=== PATIENT | male | born 1940 | race Caucasian/White ===

== ENCOUNTER 2020-07-23 07:23 | Outpatient (REF) | payer MEDICARE, SELFPAY ==
[2020-07-23 09:10] LABS: Alanine Aminotransferase 27 U/L (0-40); Albumin Level 4.1 g/dL (3.5-5.0); Alkaline Phosphatase 82 U/L (39-117); Aspartate Amino Transferase 20 U/L (5-37); Bilirubin Direct 0.3 mg/dL (0.0-0.5); Bilirubin Total 0.8 mg/dL (0.0-1.0); Cholesterol 176 mg/dL; HDL Cholesterol 43 mg/dL; LDL Cholesterol Calculated 115 mg/dl; Total Protein 6.6 g/dL (6.5-8.0); Triglycerides 93 mg/dL
[2020-07-23 10:34] LABS: Reflex LDLD? No
== END 2020-07-23 07:24 | disposition home or self-care (01) ==
LOC: HO.LAB 07:23
PROVIDERS: PCP Internal Medicine; Visit Provider Internal Medicine
DX: E78.00 Pure hypercholesterolemia, unspecified (principal)
CPT/HCPCS: 80061; 80076

== ENCOUNTER 2021-01-21 10:09 | Outpatient (REF) | payer MEDICARE, SELFPAY ==
[2021-01-21 10:12] LABS: MANUAL DIFF FLAG NO
[2021-01-21 10:37] LABS: Basophils Percent Auto 0.4 % (0-2); Eosinophils Absolute Auto 0.2 X10*3/uL (0.0-0.4); Hematocrit 47.1 % (42-52); Hemoglobin 15.3 g/dl (14.0-18.0); Imm Gran Abs Auto 0.01 X10*3/uL (0.00-0.03); Imm Gran Pct Auto 0.1 % (0.0-0.4); Lymphocytes Absolute Auto 1.7 X10*3/uL (1.2-4.9); Lymphocytes Percent Auto 24.6 % (20-40); Mean Corpuscular HGB Conc 32.5 g/dl (31.0-36.0); Mean Corpuscular Hemoglobin 28.9 pg (27.0-33.0); Mean Corpuscular Volume 88.9 fL (80-98); Mean Platelet Volume 10.6 fL (9.4-12.4); Monocytes Absolute Auto 0.5 X10*3/uL (0.1-1.2); Monocytes Percent Auto 6.7 % (2-11); Neutrophils Absolute Auto 4.4 X10*3/uL (2.0-8.3); Neutrophils Percent Auto 65.2 % (45-73); Platelet Count 214 X10*3/uL (160-400); Red Cell Distribution Width 13.2 % (11.0-16.0); White Blood Count 6.8 X10*3/uL (4.8-10.8)
[2021-01-21 10:40] LABS: Glucose Urine UA NEG (NEG); Leukocyte Esterase Urine NEG (NEG); Nitrite Urine NEG (NEG); Urine Blood NEG (NEG); Urine Ketones NEG (NEG); Urine Protein NEG (NEG-TRACE)
[2021-01-21 10:42] LABS: Appearance Urine CLEAR; Color Urine YELLOW
[2021-01-21 11:19] LABS: Alanine Aminotransferase 27 U/L (0-40); Albumin Level 4.1 g/dL (3.5-5.0); Alkaline Phosphatase 72 U/L (39-117); Anion Gap 9 (12-20); Aspartate Amino Transferase 22 U/L (5-37); Bilirubin Total 0.8 mg/dL (0.0-1.0); Blood Urea Nitrogen 15 mg/dL (9-16); Calcium 8.8 mg/dL (8.4-10.2); Carbon Dioxide 29 mmol/L (22-29); Chloride 105 mmol/L (96-108); Cholesterol 163 mg/dL; Estimated Glomerular Filt Rate > 60; Glucose Fasting 96 mg/dL (60-99); HDL Cholesterol 41 mg/dL; LDL Cholesterol Calculated 97 mg/dl; Potassium 4.3 mmol/L (3.3-5.1); Sodium 139 mmol/L (135-145); Total Protein 6.4 g/dL (6.5-8.0); Triglycerides 126 mg/dL
[2021-01-21 11:38] LABS: PSA,Total (Free>4and<10) 0.51 ng/mL (0.00-4.00)
[2021-01-21 11:49] LABS: Reflex LDLD? No
== END 2021-01-21 10:10 | disposition home or self-care (01) ==
LOC: HO.LNP 10:09
PROVIDERS: Visit Provider Internal Medicine
DX: Z12.5 Encounter for screening for malignant neoplasm of prostate (principal); I10 Essential (primary) hypertension
CPT/HCPCS: 80053; 80061; 81003; 84153; 85025

== ENCOUNTER 2021-07-21 10:32 | Outpatient (REF) | payer MEDICARE, SELFPAY ==
[2021-07-21 11:30] LABS: Alanine Aminotransferase 24 U/L (0-40); Alkaline Phosphatase 80 U/L (39-117); Aspartate Amino Transferase 20 U/L (5-37); Bilirubin Direct 0.3 mg/dL (0.0-0.5); Bilirubin Total 0.7 mg/dL (0.0-1.0); Cholesterol 161 mg/dL; HDL Cholesterol 35 mg/dL; LDL Cholesterol Calculated 104 mg/dl; Total Protein 6.5 g/dL (6.5-8.0); Triglycerides 110 mg/dL
[2021-07-21 12:51] LABS: Reflex LDLD? No
== END 2021-07-21 10:33 | disposition home or self-care (01) ==
LOC: HO.LNP 10:32
PROVIDERS: PCP Internal Medicine; Visit Provider Internal Medicine
DX: E78.00 Pure hypercholesterolemia, unspecified (principal)
CPT/HCPCS: 80061; 80076

== ENCOUNTER 2021-07-31 08:38 | Outpatient (REF) | payer MEDICARE, SELFPAY | END 2021-07-31 08:39 | disposition home or self-care (01) | LOC: HO.WFDLDS 08:38 | PROVIDERS: PCP Internal Medicine; Visit Provider Internal Medicine | DX: Z20.822 Contact with and (suspected) exposure to COVID-19 (principal) | CPT/HCPCS: C9803; U0003; U0005 ==

== ENCOUNTER 2022-01-20 10:33 | Outpatient (REF) | payer MEDICARE, SELFPAY ==
[2022-01-20 10:37] LABS: MANUAL DIFF FLAG NO
[2022-01-20 11:30] LABS: Basophils Absolute Auto 0.1 X10*3/uL (0.0-0.2); Basophils Percent Auto 0.9 % (0-2); Eosinophils Absolute Auto 0.2 X10*3/uL (0.0-0.4); Eosinophils Percent Auto 3.4 % (0-4); Hemoglobin 15.5 g/dl (14.0-18.0); Imm Gran Abs Auto 0.01 X10*3/uL (0.00-0.03); Imm Gran Pct Auto 0.2 % (0.0-0.4); Lymphocytes Absolute Auto 1.5 X10*3/uL (1.2-4.9); Lymphocytes Percent Auto 27.1 % (20-40); Mean Corpuscular Hemoglobin 29.2 pg (27.0-33.0); Mean Corpuscular Volume 88.7 fL (80.0-98.0); Mean Platelet Volume 10.9 fL (9.4-12.4); Monocytes Absolute Auto 0.4 X10*3/uL (0.1-1.2); Monocytes Percent Auto 7.8 % (2-11); Neutrophils Absolute Auto 3.4 x10*3/uL (2.0-8.3); Neutrophils Percent Auto 60.6 % (45-73); Platelet Count 233 X10*3/uL (160-400); White Blood Count 5.6 X10*3/uL (4.8-10.8)
[2022-01-20 11:44] LABS: Appearance Urine CLEAR; Color Urine YELLOW; Glucose Urine UA NEG (NEG); Leukocyte Esterase Urine NEG (NEG); Nitrite Urine NEG (NEG); Specific Gravity - Urine <= 1.005 (1.005-1.025); Urine Blood NEG (NEG); Urine Ketones NEG (NEG); Urine Protein NEG (NEG-TRACE)
[2022-01-20 11:50] LABS: Alanine Aminotransferase 20 U/L (0-40); Alkaline Phosphatase 72 U/L (39-117); Anion Gap 9 (12-20); Aspartate Amino Transferase 18 U/L (5-37); Blood Urea Nitrogen 14 mg/dL (9-16); Calcium 8.5 mg/dL (8.4-10.2); Carbon Dioxide 29 mmol/L (22-29); Chloride 103 mmol/L (96-108); Cholesterol 156 mg/dL; Estimated Glomerular Filt Rate > 60; Glucose Fasting 102 mg/dL (60-99); HDL Cholesterol 36 mg/dL; LDL Cholesterol Calculated 101 mg/dl; Potassium 4.3 mmol/L (3.3-5.1); Sodium 137 mmol/L (135-145); Total Protein 6.4 g/dL (6.5-8.0); Triglycerides 95 mg/dL
[2022-01-20 12:10] LABS: PSA,Total (Free>4and<10) 0.45 ng/mL (0.00-4.00)
[2022-01-20 12:20] LABS: RBC Urine 0 /HPF (0); WBC Urine 0 /HPF (0-4)
== END 2022-01-20 10:34 | disposition home or self-care (01) ==
LOC: HO.LNP 10:33
PROVIDERS: Visit Provider Internal Medicine
DX: Z12.5 Encounter for screening for malignant neoplasm of prostate (principal); I10 Essential (primary) hypertension; E78.00 Pure hypercholesterolemia, unspecified
CPT/HCPCS: 80053; 80061; 81001; 84153; 85025

== ENCOUNTER 2022-08-07 10:41 | Outpatient (REF) | payer MEDICARE, SELFPAY ==
[2022-08-07 11:10] LABS: Alanine Aminotransferase 30 U/L (0-40); Albumin Level 4.1 g/dL (3.5-5.0); Alkaline Phosphatase 91 U/L (39-117); Aspartate Amino Transferase 19 U/L (5-37); Bilirubin Direct 0.3 mg/dL (0.0-0.5); Cholesterol 147 mg/dL; HDL Cholesterol 39 mg/dL; LDL Cholesterol Calculated 88 mg/dl; Total Protein 6.4 g/dL (6.5-8.0); Triglycerides 103 mg/dL
[2022-08-07 13:01] LABS: Reflex LDLD? No
== END 2022-08-07 10:42 | disposition home or self-care (01) ==
LOC: HO.LNP 10:41
PROVIDERS: Visit Provider Internal Medicine
DX: E78.00 Pure hypercholesterolemia, unspecified (principal)
CPT/HCPCS: 80061; 80076

== ENCOUNTER 2023-01-28 12:07 | Outpatient (REF) | payer MEDICARE, SELFPAY ==
[2023-01-28 12:15] LABS: MANUAL DIFF FLAG NO
[2023-01-28 12:25] LABS: Appearance Urine Clear; Color Urine Yellow; Glucose Urine UA Negative (Negative); Leukocyte Esterase Urine Negative (Negative); Nitrite Urine Negative (Negative); PH 6.5 (5.0-9.0); Specific Gravity - Urine 1.015 (1.005-1.025); Urine Blood Negative (Negative); Urine Ketones Negative (Negative); Urine Protein Negative (Neg-Trace)
[2023-01-28 12:27] LABS: Bacteria Urine None Seen (None Seen); Hyaline Casts Urine 0-2 /LPF (0-2); RBC Urine 0-2 /HPF (0-2); Squamous Epithelial Cell Urine 0-2 /HPF (0-2); WBC Urine 0-5 /HPF (0-5)
[2023-01-28 12:29] LABS: Basophils Absolute Auto 0.1 X10*3/uL (0.0-0.2); Basophils Percent Auto 0.7 % (0-2); Eosinophils Absolute Auto 0.2 X10*3/uL (0.0-0.4); Eosinophils Percent Auto 2.9 % (0-4); Hematocrit 48.4 % (42.0-52.0); Hemoglobin 16.1 g/dl (14.0-18.0); Imm Gran Abs Auto 0.01 X10*3/uL (0.00-0.03); Imm Gran Pct Auto 0.1 % (0.0-0.4); Lymphocytes Absolute Auto 1.9 X10*3/uL (1.2-4.9); Lymphocytes Percent Auto 27.8 % (20-40); Mean Corpuscular HGB Conc 33.3 g/dl (31.0-36.0); Mean Corpuscular Hemoglobin 29.7 pg (27.0-33.0); Mean Corpuscular Volume 89.1 fL (80.0-98.0); Mean Platelet Volume 10.8 fL (9.4-12.4); Monocytes Absolute Auto 0.5 X10*3/uL (0.1-1.2); Neutrophils Absolute Auto 4.2 x10*3/uL (2.0-8.3); Neutrophils Percent Auto 61.5 % (45-73); Platelet Count 239 X10*3/uL (160-400); Red Blood Count 5.43 X10*6/uL (4.60-5.80); Red Cell Distribution Width 13.2 % (11.0-16.0); White Blood Count 6.9 X10*3/uL (4.8-10.8)
[2023-01-28 12:42] LABS: Alanine Aminotransferase 43 U/L (0-40); Albumin Level 4.1 g/dL (3.5-5.0); Alkaline Phosphatase 74 U/L (39-117); Anion Gap 10 (12-20); Aspartate Amino Transferase 27 U/L (5-37); Bilirubin Total 1.2 mg/dL (0.0-1.0); Blood Urea Nitrogen 13 mg/dL (9-16); Calcium 8.9 mg/dL (8.4-10.2); Carbon Dioxide 28 mmol/L (22-29); Chloride 103 mmol/L (96-108); Cholesterol 158 mg/dL; Estimated Glomerular Filt Rate > 60; Glucose Fasting 107 mg/dL (60-99); HDL Cholesterol 35 mg/dL; LDL Cholesterol Calculated 100 mg/dl; Potassium 4.3 mmol/L (3.3-5.1); Sodium 137 mmol/L (135-145); Total Protein 6.5 g/dL (6.5-8.0); Triglycerides 115 mg/dL
[2023-01-28 12:56] LABS: PSA,Total (Free>4and<10) 0.58 ng/mL (0.00-4.00)
[2023-01-28 13:25] LABS: Reflex LDLD? No
== END 2023-01-28 12:08 | disposition home or self-care (01) ==
LOC: HO.LNP 12:07
PROVIDERS: Visit Provider Internal Medicine
DX: Z00.00 Encounter for general adult medical examination without abnormal findings (principal); Z12.5 Encounter for screening for malignant neoplasm of prostate; I10 Essential (primary) hypertension; E78.00 Pure hypercholesterolemia, unspecified
CPT/HCPCS: 80053; 80061; 81001; 84153; 85025

== ENCOUNTER 2023-02-25 13:19 | Outpatient (REF) | payer MEDICARE, SELFPAY ==
--- NOTE | ~2023-02-25 | US_ITS ---
EXAMINATION: US SOFT TISSUES LEFT POPLITEAL FOSSA CLINICAL INFORMATION: Synovial cyst of left popliteal space, Nicole's. COMPARISON: None available. TECHNIQUE: Targeted ultrasound images were obtained by the subassemblies wirer of the area of concern as indicated by the patient in the left popliteal fossa. Radiologist was not in attendance. Images were later provided for interpretation. FINDINGS: No discrete cystic or fluid collection identified in the area indicated by the patient in the left popliteal fossa. Imaged segment of popliteal vein appears patent with no evidence of thrombus. US/US extremity nonvascular IMPRESSION: No left popliteal cyst.
== END 2023-02-25 13:20 | disposition home or self-care (01) ==
LOC: HO.US 13:19
PROVIDERS: PCP Internal Medicine; Visit Provider Internal Medicine
DX: M71.22 Synovial cyst of popliteal space [Baker], left knee (principal)
CPT/HCPCS: 76882

== ENCOUNTER 2023-06-04 14:18 | Outpatient (REF) | payer MEDICARE, SELFPAY ==
--- NOTE | ~2023-06-04 | XR_ITS ---
EXAMINATION: XR CHEST CLINICAL INFORMATION: Bronchitis COMPARISON: 12/04/2011 radiograph chest. 08/14/2019 CT chest. TECHNIQUE: 3 views of the chest FINDINGS: There is no gross pneumothorax. Heart size is normal. There is a 5.0 x 4.0 cm cavitary lesion with an air-fluid level in the right upper perihilar region. No pleural effusion. Degenerative changes in the thoracic spine. XR/XR chest 2V IMPRESSION: Right upper perihilar level cavitary lesion with air-fluid level. CT scan of the chest of 08/15/2019 had demonstrated a right upper lobe 5.[address] scan of the chest recommended for further evaluation This study was presented today 06/08/2023 at 11:45 AM for interpretation. PSA staff will provide results to referring provider at this time.
[2023-06-04 15:20] LABS: Influenza A PCR NEGATIVE (Negative); Influenza B PCR NEGATIVE (Negative); Resp Syncy Virus RNA Qual PCR NEGATIVE (Negative); SARS COV2 PCR INHOUSE NEGATIVE (Negative)
== END 2023-06-04 14:19 | disposition home or self-care (01) ==
LOC: HO.XRAY 14:18
PROVIDERS: Internal Medicine; PCP Internal Medicine; Visit Provider Internal Medicine
DX: Z11.52 Encounter for screening for COVID-19 (principal); Z20.822 Contact with and (suspected) exposure to COVID-19; J40 Bronchitis, not specified as acute or chronic
CPT/HCPCS: 0241U; 71046

== ENCOUNTER 2023-06-10 14:18 | Outpatient (REF) | payer MEDICARE, SELFPAY ==
[2023-06-12 07:19] LABS: Adenovirus F 40/41 Not Detected (Not Detect.); Astrovirus Not Detected (Not Detect.); Campylobacter Not Detected (Not Detect.); Cryptosporidium Not Detected (Not Detect.); Cyclospora cayetanensis Not Detected (Not Detect.); E. coli EAEC Not Detected (Not Detect.); E. coli EPEC Not Detected (Not Detect.); E. coli ETEC Not Detected (Not Detect.); E. coli STEC Not Detected (Not Detect.); Entamoeba histolytica Not Detected (Not Detect.); Giardia lamblia Not Detected (Not Detect.); Norovirus GI/GII Not Detected (Not Detect.); Plesiomonas shigelloides Not Detected (Not Detect.); Rotavirus A Not Detected (Not Detect.); Salmonella Not Detected (Not Detect.); Sapovirus Not Detected (Not Detect.); Shigella sp./EIEC Not Detected (Not Detect.); Vibrio Not Detected (Not Detect.); Vibrio Cholerae Not Detected (Not Detect.); Yersinia enterocolitica Not Detected (Not Detect.)
== END 2023-06-10 14:19 | disposition home or self-care (01) ==
LOC: HO.LNP 14:18
PROVIDERS: Visit Provider Internal Medicine
DX: R19.7 Diarrhea, unspecified (principal)
CPT/HCPCS: 87507

== ENCOUNTER 2023-06-18 07:47 | Outpatient (REF) | payer MEDICARE, SELFPAY ==
[2023-06-18 11:38] LABS: CDiff Gene PCR NEGATIVE (Negative)
[2023-06-21 11:44] LABS: Immunoglobulin A 322 mg/dL (70-320)
[2023-06-21 21:13] LABS: Gliadin Deamidated IgA Ab <1.0 U/mL; Gliadin Deamidated IgG Ab <1.0 U/mL
[2023-06-22 11:29] LABS: Endomysial IgA Antibody Negative (Negative)
[2023-06-23 22:03] LABS: Transglutaminase Ab IgG <1.0 U/mL; Transglutaminase IgA <1.0 U/mL
== END 2023-06-18 07:48 | disposition home or self-care (01) ==
LOC: HO.LAB 07:47
PROVIDERS: PCP Internal Medicine; Visit Provider Internal Medicine
DX: K52.9 Noninfective gastroenteritis and colitis, unspecified (principal)
CPT/HCPCS: 36415; 82784; 86231; 86258; 86364; 87493

== ENCOUNTER 2023-07-27 11:03 | Outpatient (REF) | payer MEDICARE, SELFPAY ==
[2023-07-27 12:09] LABS: Blood Urea Nitrogen 17 mg/dL (9-16); Estimated Glomerular Filt Rate > 60
== END 2023-07-27 11:04 | disposition home or self-care (01) ==
LOC: HO.LNP 11:03
PROVIDERS: Visit Provider Internal Medicine
DX: R91.1 Solitary pulmonary nodule (principal)
CPT/HCPCS: 82565; 84520

== ENCOUNTER 2023-07-29 08:26 | Outpatient (REF) | payer MEDICARE, SELFPAY ==
[2023-07-29] MEDS: iohexoL 350 MG/ML 100 ML INFUS..BTL IV (09:33)
== END 2023-07-29 08:27 | disposition home or self-care (01) ==
LOC: HO.CT 08:26
PROVIDERS: PCP Internal Medicine; Visit Provider Internal Medicine
DX: Q33.0 Congenital cystic lung (principal)
CPT/HCPCS: 71260; Q9967

== ENCOUNTER 2023-08-09 11:07 | Outpatient (REF) | payer MEDICARE, SELFPAY | END 2023-08-09 11:08 | disposition home or self-care (01) | LOC: HO.LNP 11:07 | PROVIDERS: Visit Provider Internal Medicine | DX: E78.00 Pure hypercholesterolemia, unspecified (principal) | CPT/HCPCS: 80061; 80076 ==

== ENCOUNTER 2023-12-18 09:13 | Outpatient (AMB) | payer MEDICARE, SELFPAY ==
[2023-12-18 09:45] VITALS: BP 130/64; PULSE 64; TEMP 37.6; O2SAT 94; BMI 24.2
--- NOTE | 2023-12-18 09:45 | MHC.OFFWIV ---
Intake Vital Signs 12/18/23 09:45 Height 5 ft 10 in Weight 169 lb BMI 24.2 BP 130/64 Blood Pressure Location Rt brachial Position Sitting Pulse 64 Pulse Source Pulse Oximeter Temp 99.7 F Temp Source Oral Pulse Oximetry (%) 94 Oxygen Delivery Method Room Air Intake Visit Reasons: EP cough fever diareah Intake Note: Pt is here today c/o cough,fever and diarrhea Allergies Penicillins [PENICILLINS] Allergy (Intermediate, Unverified 01/04/24 11:50) HIVES/DIARRHEA HPI EP cough fever diareah HPI Details Patient is an 83-year-old male comes to the walk-in clinic with postnasal drip, sore throat, mild cough and perhaps with associated diarrhea, however 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 He denies vomiting, abdominal pain, or other gastroenteritis symptoms, fever or chills, shortness of breath coughing fits or chest pain, weakness or dizziness, myalgias or malaise, or other significant associated symptoms. Reviewed past medical history with patient Review of Systems Const All systems reviewed & are unremarkable except as noted in HPI and below Physical Exam Vital Signs: Last Vital Signs Temp 99.7 F 12/18/23 09:45 Pulse 64 12/18/23 09:45 BP 130/64 12/18/23 09:45 Pulse Ox 94 12/18/23 09:45 Oxygen Delivery Method Room Air 12/18/23 09:45 BMI result Body Mass Index 24.2 Const General: cooperative, healthy appearing, comfortable, no acute distress, alert, awake, Physically active and well groomed; No anxious, diaphoretic, ill appearing, intoxicated appearing, poor hygiene or tired appearing Nutritional Appearance: average body habitus Limitations: no limitations HEENT Head: Yes normal to inspection, Yes normocephalic and Yes atraumatic Ears: hearing grossly normal bilaterally, external ears normal, TM's normal bilaterally and EAC's normal General nose exam: Normal external nose present and Abnormal mucous membranes and turbinates present Face and sinus: Yes normal facial exam, Yes sinuses nontender and Yes face symmetric Mouth: Normal oral and palatal mucosa present, lip normal and tongue normal Throat: Yes abnormal tonsil (mildly erythematous bilaterally), Yes postnasal drainage, No uvular edema and No cobblestoning Eyes General: appearance normal, both eyes and all related structures Chest Chest palpation & inspection: normal palpation of entire chest wall Resp Effort & Inspection: normal respiratory effort, able to speak in complete sentences, no audible wheezes, no cough, no grunting, not labored, no nasal flaring, no retractions and symmetric chest movement Auscultation: clear to auscultation bilaterally, no crackles, no rales, no rhonchi, no wheezes, lung sounds not diminished and No rub present Cardio Palpation: normal PMI Rate: regular rate Rhythm: regular rhythm Heart sounds: S1 normal heart sound present and S2 normal heart sound present Skin Other: Good color, warm and dry Psych Appearance: grossly normal Mental Status: mental status grossly normal Speech and movement: Normal speech and movement present Affect: normal affect Attitude: cooperative Thought process: Normal thought process present Insight: Good insight present (Psych) Judgement: Good judgement present (Psych) Assessment & Plan Assessment & Plan (1) Viral syndrome: Code(s): B34.9 - Viral infection, unspecified Plan: Patient is an 83-year-old male comes to the walk-in clinic with apparent viral syndrome. Pending flu COVID RSV results. I will write him Smith [employer]one for the cough, and I will write him for a course of azithromycin. No shortness of breath or respiratory distress, and he is stable on exam today. He can follow up if symptoms persist or worsen. He knows to go to the emergency department with worrisome symptoms. Orders: Orders SARS-CoV2/FLU/RSV 12/18/23 R05.9 - Cough, unspecified Medications: New benzonatate 200 mg PO BID-TID PRN 30 caps 0RF cough azithromycin take 500 mg today (day 1), then 250 mg for 4 days (days 2-5) PO 6 tabs 0RF Coding Level of Care Code Est Pt Level 4 (96170) Diagnoses Viral syndrome B34.9
== END 2023-12-18 11:15 | disposition home or self-care (01) ==
PROVIDERS: PCP Internal Medicine; Visit Provider Physician Assistant Medical
DX: B34.9 Viral infection, unspecified (principal)
CPT/HCPCS: 99214

== ENCOUNTER 2023-12-18 11:14 | Outpatient (REF) | payer MEDICARE, SELFPAY ==
[2023-12-18 14:55] LABS: Influenza A PCR NEGATIVE (Negative); Influenza B PCR NEGATIVE (Negative); Resp Syncy Virus RNA Qual PCR NEGATIVE (Negative); SARS COV2 PCR INHOUSE NEGATIVE (Negative)
== END 2023-12-18 11:15 | disposition home or self-care (01) ==
LOC: HO.LAB 11:14
PROVIDERS: Visit Provider Physician Assistant Medical
DX: R05.9 Cough, unspecified (principal)
CPT/HCPCS: 0241U

== ENCOUNTER 2024-01-04 11:10 | Outpatient (AMB) | payer MEDICARE, SELFPAY ==
[2024-01-04 11:46] VITALS: BMI 24.2
--- NOTE | 2024-01-04 11:46 | MHC.OFFVIS ---
Vital Signs 01/04/24 11:46 Height 5 ft 10 in Weight 169 lb BMI 24.2 Intake Visit Reasons: CASE MANAGER/PCP referral for toe discoloration Intake Note: CASE MANAGER/ Dr. Iavn referral for Right Great tOe discoloration and swelling. Pt states that was about 6 weeks ago, no injury, just discoloration and swelling w/ pain. Has subsided since then. No testing was ordered. Pt states he had the discoloration for about a month to 6 weeks Accompanied by: Self / Same As Patient Allergies Penicillins [PENICILLINS] Allergy (Intermediate, Unverified 01/04/24 11:50) HIVES/DIARRHEA HPI HPI CASE MANAGER/PCP referral for toe discoloration: Details: Very pleasant 83-year-old gentleman presents for evaluation regarding discoloration of his toes. He was seen by his primary care physician who noted that he had some cyanosis of his toes. He reports that they are nonpainful and they become discolored. He is noted it more so of late in particular his right great toe. Upon discussion with him he is a nonsmoker nondiabetic. Reports no stressors. In addition he has proximally 2 cups of coffee daily. Review of Systems Const Reports as per HPI ENT Reports no additional complaints Card Denies chest pain, Denies chest pain at rest and Denies chest pain with activity Resp Denies chest congestion and Denies cough GI Reports no additional complaints Musc Details: pain over varicosities, aching of lower extremities, swelling, cramping, heaviness and tiredness, itching Denies abnormal gait Skin/Breast Reports pruritus and Denies wounds Neuro Reports no additional complaints and Denies abnormal gait Psych Denies no additional complaints Physical Exam Vital Signs: BMI result Body Mass Index 24.2 Const General: cooperative, healthy appearing and comfortable Orientation/consciousness: oriented to person, oriented to place and oriented to time Neck Carotids: no bruits Chest Chest palpation & inspection: normal inspection of the chest and normal palpation of entire chest wall Resp Effort & Inspection: normal respiratory effort and able to speak in complete sentences Cardio Other: Patient has palpable bilateral dorsalis pedis and posterior tibial pulses Rate: regular rate Heart sounds: S1 normal heart sound present and S2 normal heart sound present Peripheral pulses: Peripheral pulses 2+ throughout GI Inspection: Yes normal to inspection Skin Other: +2 edema, large rope-like varicosities greater than 4 mm CEAP Classification C4 - skin color changes Ep - Etiology Primary As - superficial veins P - reflux General skin exam: dry skin Neuro General: oriented to person, oriented to place and oriented to time Extrem Right lower extremity: full ROM, normal capillary refill and edema Left lower extremity: full ROM, normal capillary refill and edema Psych Mental Status: mental status grossly normal Assessment & Plan Assessment & Plan (1) Raynauds phenomenon: Code(s): I73.00 - Raynaud's syndrome without gangrene Category: Medical Qualifiers: Raynaud?s-associated gangrene presence: without gangrene Qualified Code(s): I73.00 - Raynaud's syndrome without gangrene Plan: In short the patient may have an element of Raynaud's syndrome. I have discussed the pathophysiology with the patient, inclusive of spasming of the vessels and change in color of digits from white, red, and blue. We have discussed prevention inclusive of protection hand and feet at all times, reduction of caffeine intake, and reduction of stressors. Also smoking cessation may help improve issues. At the current time the patient appears to be stable. Should this persist may need follow-up with Rheumatology and use a calcium channel verna. The patient will follow up with us on an as-needed basis. Coding Level of Care Code New Pt Level 4 (63024) Diagnoses Raynaud's phenomenon without gangrene I73.00 Raynaud?s-associated gangrene presence: without gangrene
== END 2024-01-04 12:09 | disposition home or self-care (01) ==
PROVIDERS: PCP Internal Medicine; Visit Provider Surgery Vascular Surgery
DX: I73.00 Raynaud's syndrome without gangrene (principal)
CPT/HCPCS: 99203

== ENCOUNTER → 2024-01-04 11:10 | Outpatient (BNVA) | payer MEDICARE, SELFPAY | PROVIDERS: PCP Internal Medicine; Visit Provider Surgery Vascular Surgery | DX: I73.00 Raynaud's syndrome without gangrene (principal) | CPT/HCPCS: 99202 ==

== ENCOUNTER 2024-02-07 11:44 | Outpatient (REF) | payer MEDICARE, SELFPAY ==
[2024-02-07 11:50] LABS: MANUAL DIFF FLAG NO
[2024-02-07 11:54] LABS: Basophils Percent Auto 0.6 % (0-2); Eosinophils Absolute Auto 0.2 X10*3/uL (0.0-0.4); Eosinophils Percent Auto 3.7 % (0-4); Hemoglobin 15.3 g/dl (14.0-18.0); Imm Gran Abs Auto 0.02 X10*3/uL (0.00-0.03); Imm Gran Pct Auto 0.3 % (0.0-0.4); Lymphocytes Absolute Auto 1.7 X10*3/uL (1.2-4.9); Mean Corpuscular Hemoglobin 30.5 pg (27.0-33.0); Mean Corpuscular Volume 89.6 fL (80.0-98.0); Mean Platelet Volume 10.6 fL (9.4-12.4); Monocytes Absolute Auto 0.4 X10*3/uL (0.1-1.2); Monocytes Percent Auto 6.4 % (2-11); Neutrophils Absolute Auto 3.9 x10*3/uL (2.0-8.3); Platelet Count 189 X10*3/uL (160-400); Red Blood Count 5.02 X10*6/uL (4.60-5.80); Red Cell Distribution Width 13.2 % (11.0-16.0); White Blood Count 6.2 X10*3/uL (4.8-10.8)
[2024-02-07 11:57] LABS: Appearance Urine Clear; Color Urine Yellow; Glucose Urine UA Negative (Negative); Leukocyte Esterase Urine Negative (Negative); Nitrite Urine Negative (Negative); PH 6.5 (5.0-9.0); Specific Gravity - Urine 1.015 (1.005-1.025); Urine Blood Negative (Negative); Urine Ketones Negative (Negative); Urine Protein Negative (Neg-Trace)
[2024-02-07 12:04] LABS: Bacteria Urine None Seen (None Seen); Hyaline Casts Urine 0-2 /LPF (0-2); RBC Urine 0-2 /HPF (0-2); Squamous Epithelial Cell Urine 0-2 /HPF (0-2); WBC Urine 0-5 /HPF (0-5)
[2024-02-07 12:21] LABS: Alanine Aminotransferase 32 U/L (0-40); Albumin Level 3.8 g/dL (3.5-5.0); Alkaline Phosphatase 66 U/L (39-117); Anion Gap 10 (12-20); Aspartate Amino Transferase 22 U/L (5-37); Bilirubin Total 0.7 mg/dL (0.0-1.0); Blood Urea Nitrogen 14 mg/dL (9-16); Calcium 8.4 mg/dL (8.4-10.2); Carbon Dioxide 28 mmol/L (22-29); Chloride 106 mmol/L (96-108); Cholesterol 150 mg/dL (<200); Estimated Glomerular Filt Rate > 60; Glucose Fasting 97 mg/dL (60-99); HDL Cholesterol 39 mg/dL (>40); LDL Cholesterol Calculated 91 mg/dL (<100); Potassium 4.1 mmol/L (3.3-5.1); Sodium 140 mmol/L (135-145); Total Protein 6.3 g/dL (6.5-8.0); Triglycerides 103 mg/dL (<150)
[2024-02-07 12:50] LABS: PSA,Total (Free>4and<10) 0.55 ng/mL (0.00-4.00)
== END 2024-02-07 11:45 | disposition home or self-care (01) ==
LOC: HO.LNP 11:44
PROVIDERS: Visit Provider Internal Medicine
DX: I10 Essential (primary) hypertension (principal); E78.00 Pure hypercholesterolemia, unspecified; N40.0 Benign prostatic hyperplasia without lower urinary tract symptoms; Z12.5 Encounter for screening for malignant neoplasm of prostate
CPT/HCPCS: 80053; 80061; 81001; 84153; 85025

== ENCOUNTER 2024-08-10 12:13 | Outpatient (REF) | payer MEDICARE, SELFPAY ==
[2024-08-10 13:03] LABS: Alanine Aminotransferase 29 U/L (0-40); Alkaline Phosphatase 73 U/L (39-117); Aspartate Amino Transferase 26 U/L (5-37); Bilirubin Direct 0.2 mg/dL (0.0-0.5); Bilirubin Total 0.8 mg/dL (0.0-1.0); Cholesterol 156 mg/dL (<200); HDL Cholesterol 36 mg/dL (>40); LDL Cholesterol Calculated 97 mg/dL (<100); Total Protein 6.8 g/dL (6.5-8.0); Triglycerides 118 mg/dL (<150)
[2024-08-10 13:18] LABS: Reflex LDLD? No
== END 2024-08-10 12:14 | disposition home or self-care (01) ==
LOC: HO.LNP 12:13
PROVIDERS: Visit Provider Internal Medicine
DX: E78.00 Pure hypercholesterolemia, unspecified (principal)
CPT/HCPCS: 80061; 80076

== ENCOUNTER 2025-02-08 07:45 | Outpatient (REF) | payer MEDICARE, SELFPAY ==
[2025-02-08 11:15] LABS: MANUAL DIFF FLAG NO
[2025-02-08 11:33] LABS: Appearance Urine Clear; Glucose Urine UA Negative (Negative); Hematocrit 45.2 % (42.0-52.0); Hemoglobin 15.0 g/dl (14.0-18.0); Imm Gran Abs Auto 0.01 X10*3/uL (0.00-0.03); Imm Gran Pct Auto 0.2 % (0.0-0.4); Lymphocytes Absolute Auto 1.6 X10*3/uL (1.2-4.9); Mean Corpuscular HGB Conc 33.2 g/dl (31.0-36.0); Mean Corpuscular Hemoglobin 29.4 pg (27.0-33.0); Mean Corpuscular Volume 88.5 fL (80.0-98.0); NRBC Abs Auto 0.000 X10*3/uL (0.0-0.012); NRBC Pct Auto 0.0 /100WBC (0.0-0.2); PH 5.5 (5.0-9.0); Platelet Count 191 X10*3/uL (160-400); Red Blood Count 5.11 X10*6/uL (4.60-5.80); Specific Gravity - Urine 1.010 (1.005-1.025); White Blood Count 6.4 X10*3/uL (4.8-10.8)
[2025-02-08 11:48] LABS: Alanine Aminotransferase 51 U/L (0-40); Albumin Level 4.1 g/dL (3.5-5.0); Alkaline Phosphatase 70 U/L (39-117); Anion Gap 7 (12-20); Aspartate Amino Transferase 33 U/L (5-37); Blood Urea Nitrogen 16 mg/dL (9-16); Calcium 8.4 mg/dL (8.4-10.2); Carbon Dioxide 29 mmol/L (22-29); Chloride 108 mmol/L (96-108); Cholesterol 153 mg/dL (<200); Estimated Glomerular Filt Rate > 60; HDL Cholesterol 40 mg/dL (>40); Potassium 3.9 mmol/L (3.3-5.1); Sodium 140 mmol/L (135-145); Total Protein 6.4 g/dL (6.5-8.0); Triglycerides 95 mg/dL (<150)
--- OUTSIDE RECORDS SUMMARY | 2025-02-08 11:57 | XMS_ITS | Patient Health Record ---
[facility] Address [address] [place] [address] Care Team Providers [facility] Distribution [facility] Assistant Name Role Phone Troy Ivan MD Primary Care Provider Jovanny Montes De Oca Unavailable [phone] Allergies Allergen (clinical drug ingredient) Drug/Non Drug Allergy documented on EMR Reaction Allergy Type Onset Date Status Substance with penicillin structure and antibacterial mechanism of action (substance) Penicillins Unknown Drug Allergy Active Reason For Referral No Information Medications Medication SIG (Take, Route, Frequency, Duration) Notes Start Date End Date Status Flonase Active Dorzolamide HCl-Timolol Mal 2-0.5 % INSTILL 1 DROP INTO BOTH EYES TWICE A DAY Ophthalmic; Duration: 90 Days Active Atorvastatin Calcium 40 MG TAKE 1 TABLET BY MOUTH EVERY DAY Oral; Duration: 90 Days Active Social History Tobacco Use: Social History Observation Description Date Details (start date - stop date) Never Smoker NA - NA Tobacco Use/Smoking Question Answer Notes Are you a: nonsmoker Additional Findings: Tobacco Non-User Current no n-smoker Alcohol Screen Question Answer Notes Did you have a drink contain ing alcohol in the past year? Yes How often did you have a dri nk containing alcohol in the past year? Monthly or less (1 point) Points 1 Interpretation Negative Tobacco use other than smoking: Question Answer Notes Are you an other tobacco user? No Problems Problem Type SNOMED Code ICD Code Onset Dates Problem Status W/U Status Risk Notes Problem Localized, primary osteoarthritis of the ankle and/or foot (936905936) Primary osteoarthrit is, left ankle and foot (M19.072) Active confirmed Problem Other hammer toe(s) (acquired), left foot (M20.42) Active confirmed Plan Of Treatment Pending Test Test Name Order Date X ray : Foot, left 3V 09/01/2023 Insurance Providers Payer Name Payer Address Payer Phone Subscriber Number Group Number Insured Name Patient Relationship to Insured Coverage Start Date Coverage End Date Medicare [employer] [address] [place] [address] [id number] Adryan Smith Self - patient is the insured [employer] Secondary to Medicare [address] [place] [address] [id number] Adryan Smith Self - patient is the insured Medical (General) History Medical History History ICD Code Cataracts Glaucoma Reflux ( GERD) CAD (Cholesterol) Hayfever Surgical History Surgery Date(Month/Year) tonsillectomy 1944 cyst on shoulder
--- OUTSIDE RECORDS SUMMARY | 2025-02-08 11:57 | XMS_ITS | Patient Health Record ---
Author Organization Troy Ivan MD Address [address] [place], [place] [id number] Care Team Providers Care Customer Solutions Coordinator Name Role Phone Troy Ivan Primary Care Provider [phone] Allergies Allergen (clinical drug ingredient) Drug/Non Drug Allergy documented on EMR Reaction Allergy Type Onset Date Status penicillin G Penicillin G Potassium GI Upset Drug Allergy Active Results Component Value Reference Range Notes Liver Panel Reviewed date:08/10/2024 05:56:42 PM Interpretation: Performing Lab:[address] [phone] Notes/Report: Bilirubin Total 0.8 0.0-1.0 mg/dL Bilirubin Direct 0.2 0.0-0.5 mg/dL Aspartate Amino Transferase 26 5-37 U/L Alanine Aminotransferase 29 0-40 U/L Total Protein 6.8 6.5-8.0 g/dL Albumin Level 4.0 3.5-5.0 g/dL Alkaline Phosphatase 73 39-117 U/L Lipid Panel with Reflex Reviewed date:08/10/2024 05:56:15 PM Interpretation: Performing Lab:[facility], [address] [place] [phone] Notes/Report: Triglycerides 118 <150 mg/dL Desirable Triglyceride: less than 150 mg/dL Borderline High Triglyceride 150-199 mg/dL High Triglyceride: 200-499 mg/dL Very High Triglyceride: greater than or equal to 5OO mg/dL Cholesterol 156 <200 mg/dL Desirable Cholesterol: less than 200 mg/dL Borderline High Cholesterol: 200-239 mg/dL High Cholesterol: greater than 239 mg/dL LDL Cholesterol Calculated 97 <100 mg/dL Desirable LDL: less than 100 mg/dL Near Optimal/Above Optimal LDL: 110-129 mg/dL Borderline High LDL: 130-159 mg/dL High LDL: 160-189 mg/dL Very High LDL: greater than or equal to 190 mg/dL HDL Cholesterol 36 >40 mg/dL Desirable HDL: greater than 40 mg/dL Note: This HDL assay may give artificially low results in patients with liver disease. Complete Blood Count Auto Di ff (Not yet reviewed by provider) Interpretation: Performing Lab:[facility], [address] [place] [phone] Notes/Report: White Blood Count 6.4 4.8-10.8 X10*3/uL Red Blood Count 5.11 4.60-5.80 X10*6/uL Hemoglobin 15.0 14.0-18.0 g/dl Hematocrit 45.2 42.0-52.0 % Mean Corpuscular Volume 88.5 80.0-98.0 fL Mean Corpuscular Hemoglobin 29.4 27.0-33.0 pg Mean Corpuscular HGB Conc 33.2 31.0-36.0 g/dl Red Cell Distribution Width 13.1 11.0-16.0 % Platelet Count 191 160-400 X10*3/uL Mean Platelet Volume 11.1 9.4-12.4 fL Neutrophils Percent Auto 64.0 45-73 % Imm Gran Pct Auto 0.2 0.0-0.4 % Lymphocytes Percent Auto 25.5 20-40 % Monocytes Percent Auto 6.4 2-11 % Eosinophils Percent Auto 3.3 0-4 % Basophils Percent Auto 0.6 0-2 % NRBC Pct Auto 0.0 0.0-0.2 /100WBC Neutrophils Absolute Auto 4.1 2.0-8.3 x10*3/u L Imm Gran Abs Auto 0.01 0.00-0.03 X10*3/uL Lymphocytes Absolute Auto 1.6 1.2-4.9 X10*3/u L Monocytes Absolute Auto 0.4 0.1-1.2 X10*3/uL Eosinophils Absolute Auto 0.2 0.0-0.4 X10*3/u L Basophils Absolute Auto 0.0 0.0-0.2 X10*3/uL NRBC Abs Auto 0.000 0.0-0.012 X10*3/uL Comprehensive [place]. Panel Fa st (Not yet reviewed by provider) Interpretation: Performing Lab:[facility], [address] [place] [phone] Notes/Report: Sodium 140 135-145 mmol/L Potassium 3.9 3.3-5.1 mmol/L Chloride 108 96-108 mmol/L Carbon Dioxide 29 22-29 mmol/L Anion Gap 7 12-20 Blood Urea Nitrogen 16 9-16 mg/dL Creatinine 1.03 0.5-1.4 mg/dL Estimated Glomerular Filt Rate > 60 Chronic Kidney Disease: Estimated GFR < 60 mL/min/1.73m2 Severe Kidney Disease: Estimated GFR < 15 mL/min/1.73m2 Glucose Fasting 104 60-99 mg/dL A fasting glucose from 100-125 mg/dl is considered impaired (pre-diabetes). Calcium 8.4 8.4-10.2 mg/dL Bilirubin Total 0.7 0.0-1.0 mg/dL Aspartate Amino Transferase 33 5-37 U/L Alanine Aminotransferase 51 0-40 U/L Total Protein 6.4 6.5-8.0 g/dL Albumin Level 4.1 3.5-5.0 g/dL Alkaline Phosphatase 70 39-117 U/L Lipid Panel (Not yet review ed by provider) Interpretation: Performing Lab:[facility], [address] [place] [phone] Notes/Report: Triglycerides 95 <150 mg/dL Desirable Triglyceride: less than 150 mg/dL Borderline High Triglyceride 150-199 mg/dL High Triglyceride: 200-499 mg/dL Very High Triglyceride: greater than or equal to 5OO mg/dL Cholesterol 153 <200 mg/dL Desirable Cholesterol: less than 200 mg/dL Borderline High Cholesterol: 200-239 mg/dL High Cholesterol: greater than 239 mg/dL LDL Cholesterol Calculated 94 <100 mg/dL Desirable LDL: less than 100 mg/dL Near Optimal/Above Optimal LDL: 110-129 mg/dL Borderline High LDL: 130-159 mg/dL High LDL: 160-189 mg/dL Very High LDL: greater than or equal to 190 mg/dL HDL Cholesterol 40 >40 mg/dL Desirable HDL: greater than 40 mg/dL Note: This HDL assay may give artificially low results in patients with liver disease. UA ClnCatch+Micro w/rflx Cul t (Not yet reviewed by provider) Interpretation: Performing Lab:[facility], [address] [place] [phone] Notes/Report: Urine, Clean Catch Color Urine Yellow Appearance Urine Clear PH 5.5 5.0-9.0 Glucose Urine UA Negative Negative mg/dL Urine Blood Negative Negative Specific Vass - Urine 1.010 1.005-1.025 Urine Protein Negative Neg-Trace mg/dL Urine Ketones Negative Negative mg/dL Nitrite Urine Negative Negative Leukocyte Esterase Urine Negative Negative RBC Urine 0-2 0-2 /HPF WBC Urine 0-5 0-5 /HPF Squamous Epithelial Cell Urine 0-2 0-2 /HPF Bacteria Urine None Seen None Seen Hyaline Casts Urine 0-2 0-2 /LPF Occult Blood, Stool, Guaiac Reviewed date:02/14/2024 03:24:31 PM Interpretation:Negative Performing Lab: Notes/Report: Negative Occult Blood, Stool, Guaiac Neg Hold Joel Reviewed date:08/10/2024 12:22:46 PM Interpretation: Performing Lab:[facility], [address] [place] [phone] Notes/Report: Jeronimo Maldonado See Note Specimen held untested for 24 hours; Call to request Chemistry testing. Reason For Referral No Information Medications Medication SIG (Take, Route, Frequency, Duration) Notes Start Date End Date Status Durysta 10 MCG as directed Intraocular Unknown Dorzolamide HCl-Timolol Mal 22.3-6.8 MG/ML 1 drop into affected eye Ophthalmic Twice a day Active Ventolin HFA 108 (90 Base) MCG/ACT INHALE 1 PUFF INTO THE LUNGS EVERY 4 HOURS NEEDED FOR 30 DAYS for 30 Active Atorvastatin Calcium 40 MG TAKE 1 TABLET BY MOUTH EVERY DAY Active Spiriva Respimat 2.5 MCG/ACT 2 puffs Inhalation Once a day 06/29/2016 Not-Taking Valsartan-hydroCHLOROthia zide 80-12.5 MG 1 tablet Orally Once a day for 30 Not-Taking Fluticasone Propionate 50 MCG/ACT USE 1 SPRAY IN EACH NOSTRIL ONCE DAILY for 90 Active Omeprazole 40MG RX take 1 capsule daily Orally Once a day for 30 days Not-Taking Immunizations Vaccine Route Administration Date Status Comme nts Shingles IM Intramuscular 09/01/2011 Administered Flu Vaccine IM Intramuscular 09/20/2012 Administered PPSV23 (Pnemovax) IM Intramuscular 02/27/2013 Administered Prevnar 13 IM Intramuscular 10/29/2015 Administered Fluarix Quadrivalent IM Intramuscular 05/19/2016 Administe red Fluarix Quadrivalent IM Intramuscular 06/14/2017 Administe red TDaP Unknown 01/23/2018 [facility]ered [facility] Influenza High Dose IM Intramuscular 06/10/2018 Administer ed PPSV23 (Pnemovax) IM Intramuscular 06/27/2018 Administered Fluarix Quadrivalent IM Intramuscular 07/11/2019 Administe red Fluarix Quadrivalent Unknown 04/08/2020 [facility]ered [facility] Shingrix Unknown 04/08/2020 Administered [facility] Shingrix Unknown 07/02/2020 [facility]ered [facility] SARS-COV-2 Pfizer Unknown 09/18/2020 Administered SARS-COV-2 Pfizer Unknown 08/25/2020 Administered SARS-COV-2 Pfizer Unknown 04/29/2021 Administered Influenza High Dose Unknown 05/30/2021 Administered SARS-COV-2 Pfizer Unknown 12/30/2021 Administered Influenza High Dose IM Intramuscular 05/29/2022 Administer ed SARS-COV-2 Pfizer Unknown 08/06/2022 Administered Influenza High Dose IM Intramuscular 04/23/2023 Administer ed SARS-COV-2 Moderna Unknown 06/25/2023 Administered [facility] Social History Tobacco Use: Social History Observation Description Date Details (start date - stop date) Never Smoker NA - NA Tobacco Use/Smoking Question Answer Notes Patient is a nonsmoker Additional Findings: Tobacco Non-User Cu rrent non-smoker, currently using no form of tobacco Alcohol Screen Question Answer Notes Did you have a drink contain ing alcohol in the past year? Yes How often did you have a dri nk containing alcohol in the past year? Monthly or less (1 point) How many drinks did you have on a typical day when you were drinking in the past year? 1 or 2 drinks (0 point) How often did you have 6 or more drinks on one occasion in the past year? 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 Problem 131356349 Lung nodule (R91.1) Active confirmed Problem 836108681 Cervical disc di sease (M50.90) Active confirmed Problem 140918005 Lung disease, bu llous (J43.9) Active confirmed Problem 69737732 Essential hypert ension with goal blood pressure less than 130\/85 (I10) Active confirmed Problem 923178349 Pure hypercholesterolemia (E78.00) Active confirmed Problem 233095033 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) Active confirmed Problem 74825493 Glaucoma, unspec ified glaucoma type, unspecified laterality (H40.9) Active confirmed Problem 319746225 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) Active confirmed Vital Signs Blood pressure diastolic 64 mm Hg 08/17/2024 hari ght is up 5 pounds since 04-21-24 Height 70 in 08/17/2024 weight is up 5 pounds since 04-21-24 Blood pressure systolic 142 mm Hg 08/17/2024 weig ht is up 5 pounds since 04-21-24 Weight 176 lbs 08/17/2024 weight is up 5 pounds since 04-21-24 BMI 25.25 kg/m2 08/17/2024 weight is up 5 pounds since 04-21-24 Encounters Encounter Location Date Provider Diagnosis Troy Ivan MD [address] [place] [address] Drive [address] [place] [id number] 08/10/2024 Troy Ivan Pure hypercholestero lemia E78.00 Troy Ivan MD [address] [place] [id number] 02/08/2025 Troy Ivan Essential hypertensi on with goal blood pressure less than 130\/85 I10 ; Pure hypercholesterolemia E78.00 and Prostatism N40.0 Troy Ivan MD [address] [place] [id number] 02/14/2024 Troy Ivan Essential hypertensi on with goal blood pressure less than 130\/85 I10 ; Pure hypercholesterolemia E78.00 ; Prostatism N40.0 ; Colon cancer screening Z12.11 and Encounter for screening for depression Z13.31 Troy Ivan MD [address] [place] [id number] 04/21/2024 Troy Ivan COVID-19 U07.1 Troy Ivan MD [address] [id number] 06/23/2024 Troy Ivan Acute diarrhea R19.7 Troy Ivan MD [address] [id number] 08/17/2024 Troy Ivan Pure hypercholestero lemia E78.00 ; Essential hypertension with goal blood pressure less than 130\/85 I10 and Bilateral impacted cerumen H61.23 Troy Ivan MD [address] [id number] 06/27/2024 Troy Ivan Assessments Encounter Date Diagnosis (ICD Code) Assessment Notes Treatment Notes Treatment Clinical Notes Section Notes 08/10/2024 Pure hypercholesterolemia (ICD-10 - E78.00) 02/08/2025 Essential hypertensi on with goal blood pressure less than 130\/85 (ICD-10 - I10) 02/14/2024 Essential hypertensi on with goal blood pressure less than 130\/85 (ICD-10 - I10) doing well on meds, will continue to monitor 02/14/2024 Pure hypercholesterolemia (ICD-10 - E78.00) well controlled on meds, will continue current egiment 04/21/2024 COVID-19 (ICD-10 - U07.1) since the weekend is coming i have sent a script for paxlovid but he is not actually sick so unless he starts to get sick not to get it 06/23/2024 Acute diarrhea (ICD- 10 - R19.7) most likely just a viral syndrome. today is wednesday if it is not better over the weekend to call me on wednesday and will send for culture 08/17/2024 Pure hypercholesterolemia (ICD-10 - E78.00) good values, will continue current regiment 08/17/2024 Essential hypertensi on with goal blood pressure less than 130\/85 (ICD-10 - I10) doing well, will continue to monitor 02/08/2025 Pure hypercholesterolemia (ICD-10 - E78.00) 02/14/2024 Prostatism (ICD-10 - N40.0) stable, will continue to monitor 08/17/2024 Bilateral impacted cerumen (ICD-10 - H61.23) bilateral ear lavage completed with good results 02/08/2025 Prostatism (ICD-10 - N40.0) 02/14/2024 Colon cancer screeni ng (ICD-10 - Z12.11) guaiac negative 02/14/2024 Encounter for screen ing for depression (ICD-10 - Z13.31) negative screen Plan Of Treatment Pending Test Test Name Order Date Electrocardiogram (EKG) 12/10/2016 Electrocardiogram (EKG) 01/19/2019 Electrocardiogram (EKG) 11/28/2015 CARDIOVASCULAR STRESS TEST 10/08/2015 CT CHEST NO CONTRAST 02/23/2014 CT CHEST NO CONTRAST 07/24/2019 CT CHEST W&WO CONTRAST 06/10/2023 XR CHEST 2 VIEW PA & LAT 06/04/2023 US SOFT TISSUE 02/16/2023 Complete Blood Count Auto Diff 5 Comprehensive [place]. Panel Fast 5 Lipid Panel 02/08/2025 PSA,Total (Free>4and<10) 02/08/2025 CT chest w con 06/17/2023 UA ClnCatch+Micro w/rflx Cult 02/08/2025 Next Appt Details Provider Name:Troy mckay, 02/15/2025 01:00:00 PM, [address] [place] [address], [address], [place], [place], [phone], Insurance Providers Payer Name Payer Address Payer Phone Subscriber Number Group Number Insured Name Patient Relationship to Insured Coverage Start Date Coverage End Date MEDICARE [address] [place] [address] [id number] CLARA PEPE Self - patient is the insured [facility] [employer] [facility] [employer] [facility] CLAIM [facility] [address] [place] [phone] [id number] CLARA PEPE Self - patient is the insured Medical (General) History Medical History History ICD Code colonoscopy 2003 due in 10 years; colono scopy 06/01/[address] Shaver Hx Liver Cyst - no treatment durysta is timolol
--- OUTSIDE RECORDS SUMMARY | 2025-02-08 11:57 | XMS_ITS | Patient Health Record ---
Author Organization [facility] Address [address] [place] [address] Care Team Providers Care Rn Plastic Surgery Name Role Phone Tory Ivan MD Primary Care Provider Gerber Freedman Jr Unavailable Allergies Allergen (clinical drug ingredient) Drug/Non Drug Allergy documented on EMR Reaction Allergy Type Onset Date Status penicillamine Penicillamine Unknown Drug Allergy Active Reason For Referral No Information Medications Medication SIG (Take, Route, Frequency, Duration) Notes Start Date End Date Status Dorzolamide HCl-Timolol Mal 2-0.5 % INSTILL 1 DROP INTO BOTH EYES TWICE A DAY Ophthalmic for 90 Active Atorvastatin Calcium Active Immunizations Vaccine Route Administration Date Status Comme nts Influenza Unknown 08/03/2023 Administered Social History Alcohol Screen Question Answer Notes Did you have a drink containing alcohol in the p ast year? No Points 0 Interpretation Negative Problems Problem Type SNOMED Code ICD Code Onset Dates Problem Status W/U Status Risk Notes Problem 52047600 Change in bowel habits (R19.4) Active confirmed Plan Of Treatment Future Test Test Name Order Date UPPER GI ENDOSCOPY 12/29/2013 COLONOSCOPY 12/29/2013 Insurance Providers Payer Name Payer Address Payer Phone Subscriber Number Group Number Insured Name Patient Relationship to Insured Coverage Start Date Coverage End Date MEDICARE OF [place] [address] [place] [id number] CLARA PEPE Self - patient is the insured [employer] MEDI COMP (REFERRAL REQUIRED) [address] [address] [place], [place] [id number] CLARA PEPE Self - patient is the insured Medical (General) History Medical History History ICD Code Colonoscopy 06/01/14, diverticulosis, fo rosalba p.r.n. Gastroesophageal reflux dise ase, EGD 05/15, no H. pylori or Cárdenas's esophagus Hyperlipidemia Glaucoma Surgical History Surgery Date(Month/Year) tonsillectomy benign growth removed from the left neck
[2025-02-08 12:09] LABS: PSA,Total (Free>4and<10) 0.56 ng/mL (0.00-4.00)
== END 2025-02-08 07:46 | disposition home or self-care (01) ==
LOC: HO.LNP 07:45
PROVIDERS: Visit Provider Internal Medicine
DX: I10 Essential (primary) hypertension (principal); E78.00 Pure hypercholesterolemia, unspecified; N40.0 Benign prostatic hyperplasia without lower urinary tract symptoms; Z12.5 Encounter for screening for malignant neoplasm of prostate
CPT/HCPCS: 80053; 80061; 81001; 84153; 85025